=== PATIENT | female | born 1950 | race Caucasian/White ===

== ENCOUNTER 2016-12-11 14:44 | Emergency (ER) | payer MEDICARE, BC ==
[~2016-12-11] VITALS: Ht 157.5 cm; Wt 113.6 kg
[~2016-12-11 14:44] MED LIST: ADULT ASPIRIN L81 MG PO; ALENDRONATE70 MG PO; ASPIRIN81 MG PO; ATENOLOL50 MG PO; AVELOX400 MG PO; BENAZEPRIL40 M1 PO; BENAZEPRIL40 MG PO; BENAZEPRIL5 M1 PO; CALCIUM MAGNESIUM & PO; CINNAMON500 MG PO; FEXOFENADINE180 MG PO; FISH OIL1000 MG PO; FISH OIL1200 M1 PO; FUROSEMIDE20 MG PO; GARLIC1000 MG PO; GLIMEPIRIDE4 MG PO; LANTUS IJ; LANTUS SOLOSTAR SC; LEVOTHYROXIN50 MC1 PO; LYRICA25 MG PO; MAXZIDE-25MG1 COMBO PO; MEDDOSEPAK OR; OCUVITE EYE HEALTH F PO; OXYBUTYNIN5 MG PO; PAROXETINE20 MG PO; PAROXETINE40 MG; PAXIL40 MG PO; PERCOCET 10/31 COMBO PO; PRAVASTATIN SOD40 MG PO; PREVACID30 M2 PO; PROTONIX40 M2 PO; ROPINIROLE HCL1 MG PO; SPIRIVA HANDIHALER INH; SUPER BIOTIN5000 MCG PO; TRICOR145 MG PO; VENTOLIN HF1 INH; VENTOLIN2 MG OR; VITAMIN B CO OR; VITAMIN C1000 MG PO; VITAMIN C500 M1 PO; ZETIA10 MG PO; ZOFRAN ODT4 MG PO; [UNRECOGNIZED DRUG - OTHER]; [UNRECOGNIZED DRUG - OTHER] OR
[2016-12-11 15:25] LABS: URINE BILIRUBIN - DIPSTICK NEGATIVE (NEGATIVE); URINE BLOOD DIPSTICK NEGATIVE (NEGATIVE); URINE CLARITY SLIGHT CLOUDY; URINE COLOR YELLOW; URINE GLUCOSE - DIPSTICK >=1000 mg/dL (NEGATIVE); URINE KETONE NEGATIVE (NEGATIVE); URINE LEUK ESTERASE NEGATIVE (NEGATIVE); URINE NITRITE - DIPSTICK NEGATIVE (Negative); URINE PROTEIN - DIPSTICK NEGATIVE (NEG-TRACE)
[2016-12-11 15:53] LABS: HEMATOCRIT 47.9 % (37.0-47.0); HEMOGLOBIN 16.8 g/dl (12.0-16.0); IMMATURE GRANULOCYTES 0.4 % (0.0-1.0); MEAN CORPUSCULAR HGB 31.6 pG CALC (26.0-32.0); MEAN CORPUSCULAR HGB CONC 35.1 g/L CALC (32.0-36.0); NEUT# 4.49 thou/uL (2.00-7.15); RED BLOOD COUNT 5.32 mill/uL (4.20-5.60); RED CELL DISTRI WIDTH 12.5 % (11.5-15.5)
[2016-12-11 16:06] LABS: ALBUMIN 4.4 g/dL (3.2-5.0); ALKALINE PHOSPHATASE 52 u/l (38-126); ANION GAP 15 (6-22 (CALC)); BILIRUBIN, TOTAL 0.8 mg/dL (0.0-1.4); BUN 15 mg/dL (8-23); BUN/CREATININE RATIO 16 (12-20 (CALC)); CALCIUM 9.8 mg/dL (8.4-10.2); CARBON DIOXIDE 26 mmol/l (22-30); CHLORIDE 106 mmol/l (95-108); GFR 56 ML/MIN (>=60 (CALC)); GFR FOR AFR.AMER. > 60 ML/MIN (>=60 (CALC)); GLUCOSE 138 mg/dL (82-115); POTASSIUM 4.3 mmol/l (3.5-5.1); SGOT/AST 29 u/l (9-36); SGPT/ALT 51 u/l (11-66); SODIUM 142 mmol/l (137-146); TOTAL PROTEIN 7.3 g/dL (6.3-8.2)
[2016-12-11] MEDS ORDERED: MONISTAT1 VA (16:16)
[2016-12-11] MEDS ORDERED: CIPROFLOXACN500 MG PO (16:16)
[2016-12-11 16:26] VITALS: BP 152/67
== END 2016-12-11 16:30 | disposition home or self-care (01) ==
LOC: ED 14:44
PROVIDERS: Emergency Medicine
DX: J44.1 Chronic obstructive pulmonary disease with (acute) exacerbation (principal); N76.0 Acute vaginitis; E11.9 Type 2 diabetes mellitus without complications; M81.0 Age-related osteoporosis without current pathological fracture; I10 Essential (primary) hypertension; K21.9 Gastro-esophageal reflux disease without esophagitis; Z79.4 Long term (current) use of insulin

== ENCOUNTER 2017-06-09 05:44 | Day surgery (SDC) | payer MEDICARE, BC ==
[~2017-06-09 05:44] MED LIST changes: +CIPROFLOXACN500 MG PO; +LANTUS SOL100 UNIT/M SC; -LANTUS SOLOSTAR SC; +MONISTAT1 VA; +SPIRIVA HANDIHALER IN; -SPIRIVA HANDIHALER INH; +VICTOZA18 MG/3 ML SC; +VITAMIN D1000 UNIT PO
[2017-06-09] MEDS ORDERED: GABAPENTIN100 MG PO (06:38)
[2017-06-09] MEDS ORDERED: ESCITALOPRAM OX10 MG PO (06:39)
[2017-06-09] MEDS ORDERED: SYMBICORT 80-4.5MCG IN (06:39)
[2017-06-09 07:47] VITALS: BP 97/52
== END 2017-06-09 08:22 | disposition home or self-care (01) ==
LOC: ENDO 05:44
PROVIDERS: ATTEND Surgery
PROC: 0DBF8ZX Excision of Right Large Intestine, Via Natural or Artificial Opening Endoscopic, Diagnostic (ICD-10-PCS; principal; 2017-06-09)
PROC: 0DBL8ZX Excision of Transverse Colon, Via Natural or Artificial Opening Endoscopic, Diagnostic (ICD-10-PCS; 2017-06-09)
DX: Z12.11 Encounter for screening for malignant neoplasm of colon (principal); I10 Essential (primary) hypertension; G62.9 Polyneuropathy, unspecified; E03.9 Hypothyroidism, unspecified; K21.9 Gastro-esophageal reflux disease without esophagitis; E78.5 Hyperlipidemia, unspecified; J45.909 Unspecified asthma, uncomplicated; K63.5 Polyp of colon; D12.3 Benign neoplasm of transverse colon

== ENCOUNTER → 2018-08-30 | Outpatient (REF) | payer MEDICARE, BC ==
[~2018-08-30] MED LIST changes: +ESCITALOPRAM OX10 MG PO; +GABAPENTIN100 MG PO; +SYMBICORT 80-4.5MCG IN
== END | disposition home or self-care (01) ==
LOC: MAMMO 13:51
PROVIDERS: ATTEND Internal Medicine
DX: Z12.31 Encounter for screening mammogram for malignant neoplasm of breast (principal)

== ENCOUNTER 2022-07-22 08:47 | Day surgery (SDC) | payer MEDICARE, BC ==
[~2022-07-22] VITALS: Ht 157.5 cm; Wt 88.9 kg
[~2022-07-22 08:47] MED LIST changes: +ATORVASTATIN CA40 MG PO; +METFORMIN HCL1000 MG PO; +NOVOLOG FL100 UNIT/M SC; +OZEMPIC2 MG SC; +ROPINIROLE0.5 MG PO; +[UNRECOGNIZED DRUG - SUPPLY]
[2022-07-22 10:15] VITALS: BP 129/81
== END 2022-07-22 10:30 | disposition home or self-care (01) ==
LOC: ENDO 08:47
PROVIDERS: ATTEND Surgery
PROC: 0DBF8ZX Excision of Right Large Intestine, Via Natural or Artificial Opening Endoscopic, Diagnostic (ICD-10-PCS; principal; 2022-07-22)
DX: Z12.11 Encounter for screening for malignant neoplasm of colon (principal); D12.2 Benign neoplasm of ascending colon; G47.33 Obstructive sleep apnea (adult) (pediatric); I13.0 Hypertensive heart and chronic kidney disease with heart failure and stage 1 through stage 4 chronic kidney disease, or unspecified chronic kidney disease; I50.32 Chronic diastolic (congestive) heart failure; E11.22 Type 2 diabetes mellitus with diabetic chronic kidney disease; N18.30 Chronic kidney disease, stage 3 unspecified; I25.10 Atherosclerotic heart disease of native coronary artery without angina pectoris; I27.20 Pulmonary hypertension, unspecified; E11.40 Type 2 diabetes mellitus with diabetic neuropathy, unspecified; J43.1 Panlobular emphysema; G25.81 Restless legs syndrome; E78.5 Hyperlipidemia, unspecified; Z79.84 Long term (current) use of oral hypoglycemic drugs; Z79.85 Long-term (current) use of injectable non-insulin antidiabetic drugs; Z86.010 Personal history of colon polyps

== ENCOUNTER 2022-07-29 12:23 | Emergency (ER) | payer MEDICARE, BC ==
[~2022-07-29] VITALS: Ht 157.5 cm; Wt 93.0 kg
[2022-07-29 13:39] LABS: URINE BILIRUBIN - DIPSTICK NEGATIVE (NEGATIVE); URINE BLOOD DIPSTICK NEGATIVE (NEGATIVE); URINE COLOR YELLOW; URINE GLUCOSE - DIPSTICK NEGATIVE (NEGATIVE); URINE KETONE TRACE mg/dL (NEGATIVE); URINE LEUK ESTERASE NEGATIVE (NEGATIVE); URINE PH 5.5 (4.5-8.0); URINE PROTEIN - DIPSTICK NEGATIVE (NEG-TRACE); URINE SPECIFIC GRAVITY >=1.030; URINE UROBILINOGEN - DIPSTICK 0.2 E.U./dL (0.2)
[2022-07-29 13:40] LABS: URINE NITRITE - DIPSTICK NEGATIVE (Negative)
[2022-07-29] MEDS ORDERED: METHOCARBAMOL500 MG PO (14:11)
[2022-07-29] MEDS ORDERED: HYDROCO/APAP1 TA9 PO (14:11)
[2022-07-29 14:41] VITALS: BP 148/69
== END 2022-07-29 14:41 | disposition home or self-care (01) ==
LOC: ED 12:23
PROVIDERS: Nurse Practitioner
DX: M54.50 Low back pain, unspecified (principal); E11.42 Type 2 diabetes mellitus with diabetic polyneuropathy; F32.A Depression, unspecified; E78.00 Pure hypercholesterolemia, unspecified; I11.0 Hypertensive heart disease with heart failure; I50.9 Heart failure, unspecified; J44.9 Chronic obstructive pulmonary disease, unspecified; K21.9 Gastro-esophageal reflux disease without esophagitis; Z79.84 Long term (current) use of oral hypoglycemic drugs; Z79.4 Long term (current) use of insulin; Z98.890 Other specified postprocedural states